=== PATIENT | female | born 1985 | race Hispanic/Latino ===

== ENCOUNTER 2017-07-18 08:03 | Emergency (ER) | payer SELFPAY ==
[2017-07-18 10:16] LABS: #Eosinphils 0.2 thou/uL (0.0-0.7); #Lymphocytes 1.9 thou/uL (1.20-3.40); #Monocytes 0.6 thou/uL (0.11-0.59); #Neutrophils 8.5 thou/uL (1.40-6.50); %Basophils 0.1 % (0.0-1.0); %Eosinophils 1.7 % (0.0-10.0); %Monocytes 5.1 % (0.0-10.0); Hematocrit 43.9 % (36.0-47.0); Mean Platelet Volume 8.3 fL (7.4-10.4); Red Blood Cell (RBC) Count 4.73 mill/uL (4.20-5.40); White Blood Cell (WBC) Count 11.2 thou/uL (4.8-10.8)
[2017-07-18 10:20] LABS: Anion Gap 11 mmol/L (10-20); BUN (Urea Nitrogen) 8 mg/dL (7.0-18.7); Calc. Creatinine Clearance 0 mL/min (70-130); Calcium 9.3 mg/dL (7.8-10.44); Carbon Dioxide 26 mmol/L (22-29); Chloride 105 mmol/L (98-107); Estimated GFR-MDRD Greater than 90
[2017-07-18 10:37] LABS: Bilirubin Negative (Negative); Blood, Urine Large (Negative); Glucose, Urine (Dipstick) Negative (Negative); Ketone, Urine Negative (Negative); Nitrite Negative (Negative); Protein, Urine (Dipstick) Trace mg/dL (Neg-Trace); Urobilinogen 0.2 mg/dL (0.2-1.0)
[2017-07-18 10:41] LABS: Bacteria/HPF 1+ HPF (None Seen); Hyaline Casts/LPF 0-3 HYALINE CAST LPF (0-3 Hyaline); RBC/HPF GREATER THAN 50-TNTC HPF (0-3)
--- NOTE | 2017-07-18 10:58 | ULT ---
TRANSABDOMINAL AND TRANSVAGINAL PELVIC ULTRASOUND: Date: 07/18/17 PROVIDED CLINICAL HISTORY: Pelvic pain and bleeding. FINDINGS: Uterus measures about 9.7 x 7.0 x 5.3 cm. There is heterogeneous echogenic material seen within the endometrial canal and in the region of the uterine cervix. There is no evidence for an intrauterine gestational sac. The right ovary measures about 2.5 x 1.3 x 1.5 cm. The left ovary measures about 1.9 x 1.6 x 1.4 cm. Color Doppler and spectral analysis of the ovarian waveforms reveals normal flow bilaterally. There is no evidence for significant free pelvic fluid. IMPRESSION: 1. No evidence for an intrauterine gestational sac. Correlate with beta HCG values. 2. Heterogeneous material is present within the uterine endometrial canal which may reflect blood p roducts. Other etiologies are not excluded. Follow-up is recommended. POS: LILIANA
== END 2017-07-18 11:48 | disposition home or self-care (01) ==
LOC: ERS 08:03
DX: O03.4 Incomplete spontaneous abortion without complication (principal)
CPT/HCPCS: 36415; 76856; 80048; 81003; 81015; 81025; 84702; 85025; 86900; 86901

== ENCOUNTER 2017-07-20 13:41 | Emergency (ER) | payer OTHER, SELFPAY | END 2017-07-20 16:17 | disposition home or self-care (01) | LOC: ERS 13:41 | DX: O03.9 Complete or unspecified spontaneous abortion without complication (principal) | CPT/HCPCS: 36415; 84702; 99284 ==

== ENCOUNTER 2018-11-22 20:22 | Emergency (ER) | payer MEDICAID, OTHER, SELFPAY | END 2018-11-22 22:50 | disposition home or self-care (01) | LOC: ERS 20:22 | DX: O99.512 Diseases of the respiratory system complicating pregnancy, second trimester (principal); J20.9 Acute bronchitis, unspecified; J02.9 Acute pharyngitis, unspecified | CPT/HCPCS: 87081; 87430; 99283 ==

== ENCOUNTER 2019-03-20 05:57 | Inpatient (IN) | payer OTHER, SELFPAY ==
[2019-03-20 06:36] VITALS: BMI 28.7
[2019-03-20] MEDS ORDERED: Promethazine HCl 25 MG/ML VIAL IM PRN ×2 (07:16→08:36)
[2019-03-20] MEDS ORDERED: Butorphanol Tartrate 1 MG/ML VIAL SLOW IVP PRN (07:16)
[2019-03-20] MEDS ORDERED: Ondansetron PF 4 MG/2 ML Vial IVP PRN ×2 (07:16→08:36)
[2019-03-20] MEDS ORDERED: Acetaminophen 500 MG TAB PO PRN (07:16)
[2019-03-20] MEDS ORDERED: Methylergonovine 0.2 MG/ML VIAL IM PRN (07:16)
[2019-03-20] MEDS ORDERED: NS / Oxytocin 40 units/1000ml 1,000 ML IV PRN (07:16)
[2019-03-20] MEDS ORDERED: Misoprostol 200 MCG TAB PR PRN (07:16)
[2019-03-20] MEDS ORDERED: Carboprost 250 MCG/ML AMP IM PRN (07:16)
[2019-03-20] MEDS ORDERED: Ibuprofen 800 MG TAB PO PRN (07:16)
[2019-03-20] MEDS ORDERED: hydrALAZINE 20 MG/ML VIAL SLOW IVP PRN ×2 (07:16→22:16)
[2019-03-20] MEDS ORDERED: Lidocaine 1% (PF) 30 ML VIAL SC PRN (07:16)
--- NOTE | 2019-03-20 07:23 | PDOC.FPROB ---
FMR OB H&P: HPI - History of Present Illness Chief Complaint: contractions History of Present Illness: 34 yo @ 38.2 by LMP/7.6 wk sono presents to L&D for contractions that began two days ago and have been increasing in frequency and pain. Reports ctx now q7min with very intense pain. Denies LOF, vaginal discharge, bleeding, headache. Desires epidural. Primary Care Physician: Vicente MORRIS FMR OB H&P: Current - Care : 5 Para: [id number] Gestational age: 38.2 Due date: 04/01/2019 Dating Criteria: LMP/17.6 wk sono Course/Complications: a1GDM, fibroid with overlying placenta - OB Labs Blood type: B RH: positive Antibody Screen: negative HIV: negative RPR: negative HepBsAg: negative Rubella: immune Gonorrhea: negative Chlamydia: negative Pap Smear: Normal 11/03/18 1 hour gtt: 211 A1c: 5.0 H&H: 11.3/33.8 Platelets: 216 Additional labs: tsh 0.245 - First Trimester Ultrasound First trimester: anterior fibroid with placenta overlying - Anatomy Survey Anatomy survey: [place] 41%, Male fetus FMR OB H&P: History - OB History OB History: GDM with last 2014, diet controlled - 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 - Family History Family History: Both grandmothers with diabetes FMR OB H&P: Medications - Current Home Medications: Medication Instructions Recorded Confirmed Type Vitamin 1 tablet PO DAILY 04/01/15 03/20/19 History Ferrous Sulfate [Feosol] 325 mg PO BID-WM #0 tab 04/02/15 03/20/19 Rx Allergies/Adverse Reactions: Allergies Allergy/AdvReac Type Severity Reaction Status Date / Time No Known Allergies Allergy Verified 03/20/19 06:36 FMR OB H&P: ROS - Review of Systems Eyes: denies: vision changes Cardiovascular: denies: chest pain, palpitation, edema Respiratory: denies: shortness of breath Gastrointestinal: denies: nausea, vomiting, diarrhea Genitourinary (Female): reports: contractions. denies: dysuria, vaginal discharge, vaginal bleeding Neurologic: denies: headache FMR OB H&P: Vital Signs - Maternal Vital signs: Vital Signs - First Documented Temp Pulse Resp BP Pulse Ox 98.5 F 59 L 16 138/88 98 03/20/19 06:06 03/20/19 06:06 03/20/19 06:06 03/20/19 06:06 03/20/19 06:06 - Heart Tones Baseline: 155 Variability: moderate Acceleration: present Deceleration: absent Category: category 1 [place] contractions every: 5-7 min FMR OB H&P: Physical Exam - Physical Exam General: NAD HEENT: normocephalic and atraumatic Heart: RRR, normal S1/S2, no murmurs/rubs/gallops General: CTAB, no respiratory distress Abdomen: soft, gravid, non-tender Skin: good tugor Lymphatic: no unusual bruising or bleeding - Pelvic Exam Vulva: normal hair distribution SVE: 5/100/-1 FMR OB H&P: A/P - Problem List (1) Intrauterine Current Visit: Yes Status: Acute Code(s): Z34.90 - ENCNTR FOR SUPRVSN OF NORMAL , UNSP, UNSP TRIMESTER (2) Gestational diabetes mellitus in childbirth Current Visit: Yes Status: Acute Code(s): O24.429 - GESTATIONAL DIABETES MELLITUS IN CHILDBIRTH, UNSP CONTROL Discussion: Date/Time: 03/20/19718 sIUP - painful ctx q5-7 min - desires epidural, consult anesthesia - No LOF - FHT Cat 1 - 4/100/-1 @ 0615 - 100/-1 @ 0715 - No GBS record on file. Plan to call [facility] A1GDM - 1hr GTT elevated - diet controlled Fibroid with overlying placenta - seen on initial US PCP: Vicente-PNC Dispo: admit to L&D for labor This H&P was discussed with Dr. Adam who agrees with the above documentation and plan. Addendum - Attending - Attending Attestation Date/Time: 03/20/19 1540 I personally evaluated the patient and discussed the management with Dr. Méndez I agree with the History, Examination, Assessment and Plan documented above with any addition or exceptions noted below - 34 yo @ 38 2/7 weeks presented c/o ctx. Denies LOF, VB (+) FM. Initial SVE 4/C/-1 and progressed to 5 /C/-1 on recheck. Admit patient for active labor. Category 1 FHTs. GBS negative.
[2019-03-20] MEDS ORDERED: Lactated Ringer's 1,000 ML IV SCH (07:30)
[2019-03-20 08:14] LABS: Hemoglobin 12.4 g/dL (12.0-16.0); Mean Corpuscular HGB CONC 32.5 g/dL (32.0-36.0); Mean Corpuscular Hemoglobin 27.9 pg (27.0-31.0); Mean Corpuscular Volume 85.8 fL (78.0-98.0); RBC Distribution Width 15.4 % (11.5-14.5); Red Blood Cell (RBC) Count 4.44 mill/uL (4.20-5.40)
[2019-03-20] MEDS ORDERED: Fentanyl 4 mcg/Bup 0.1% Cadd 100 ML ONE ×2 (08:18→16:17)
[2019-03-20 08:26] LABS: Mean Platelet Volume 11.8 fL (7.4-10.4); Platelet Count 114 thou/uL (130-400)
[2019-03-20] MEDS ORDERED: Acetaminophen 325 MG TAB PO PRN (08:36)
[2019-03-20] MEDS ORDERED: Lactated Ringer's 500 ML IV PRN (08:36)
[2019-03-20] MEDS ORDERED: diphenhydrAMINE 50 MG/ML VIAL IVP PRN (08:36)
[2019-03-20] MEDS ORDERED: ePHEDrine/0.9% NaCl/PF SYRINGE 50 mg/10 ml SLOW IVP PRN (08:36)
[2019-03-20] MEDS ORDERED: Naloxone HCl 0.4 mg/ml Vial IVP PRN ×2 (08:36)
[2019-03-20 08:42] LABS: HBSAg Index 0.27 S/CO (0-0.99); Hep B Surf Ag Non-Reactive S/CO (NonReactive)
[2019-03-20 08:43] LABS: Syphilis Antibody Nonreactive (Nonreactive); Syphilis Antibody Index 0.02 S/CO (<1.00 Non-Reactive)
[2019-03-20] MEDS ORDERED: Fentanyl 4 mcg/Bupivacaine 0.1% Cassette 100 ML EPIDURAL SCH (08:45)
[2019-03-20] MEDS ORDERED: Communication Order-Pharmacy FS SCH (08:45)
--- NOTE | 2019-03-20 11:43 | PDOC.LDPN ---
Labor & Delivery Progress Note - Subjective Subjective: comfortable - Objective Vital signs reviewed and normal: yes General: NAD Dilation: 6 Effacement: 100% Station: -1 FHT: category 1 (145/mod/+accel/variable decel seen) [place] contractions every: 5 min - Assessment (1) Intrauterine Code(s): Z34.90 - ENCNTR FOR SUPRVSN OF NORMAL , UNSP, UNSP TRIMESTER Current Visit: Yes Status: Acute (2) Gestational diabetes mellitus in childbirth Code(s): O24.429 - GESTATIONAL DIABETES MELLITUS IN CHILDBIRTH, UNSP CONTROL Current Visit: Yes Status: Acute Plan: continue plan of care -: sIUP - ctx q5 min - epidural in place - FHT Cat 1 - has had variable decel seen - 100/-1 @ 0615 - 100/-1 @ 0715 - SROM, 100/-1 @ 1130 - GBS negative - CPL called A1GDM - 1hr GTT elevated - diet controlled Fibroid with overlying placenta - seen on initial US Dispo: Continue current management
--- NOTE | 2019-03-20 12:12 | PDOC.LDPN ---
Labor & Delivery Progress Note - Subjective Subjective: comfortable - Objective Vital signs reviewed and normal: yes General: resting Dilation: 6 Effacement: 100% Station: -1 FHT: early decelerations, variable decelerations, variability present [place] contractions every: not picking up well on monitor AROM: clear fluid IUPC placed: yes Resuscitative measures: amniofusion, maternal IV fluids, maternal position change - Assessment (1) Intrauterine Code(s): Z34.90 - ENCNTR FOR SUPRVSN OF NORMAL , UNSP, UNSP TRIMESTER Current Visit: Yes Status: Acute (2) Gestational diabetes mellitus in childbirth Code(s): O24.429 - GESTATIONAL DIABETES MELLITUS IN CHILDBIRTH, UNSP CONTROL Current Visit: Yes Status: Acute Plan: continue plan of care, resuscitative measures -: sIUP - ctx q5 min - epidural in place - FHT variable and early decel seen. Good variability. - 100/-1 @ 0615 - 100/-1 @ 0715 - SROM, 100/-1 @ 1130, completed with AROM @ [address] - GBS negative - CPL called A1GDM - 1hr GTT elevated - diet controlled Fibroid with overlying placenta - seen on initial US Dispo: IUPC placed, plan for amnioinfusion and continue to monitor
--- NOTE | 2019-03-20 14:55 | PDOC.LDPN ---
Labor & Delivery Progress Note - Objective Abnormal vital signs: Bp 120-140/80-90 General: NAD, resting SVE: 7/C/0 FHT: category 2 [place] contractions every: q3 min -: A/P: 1) IUP @38 2/7 weeks in active labor Cat 2 FHTs- deep variables earlier now improved with amnio-infusion Continue expectant management 2) Intermittent elevated BP Will check CMP, urine protein/Cr ratio
[2019-03-20 15:18] LABS: ALT (SGPT) 23 U/L (8-55); AST (SGOT) 18 U/L (5-34); Albumin 3.3 g/dL (3.5-5.0); Alkaline Phosphatase 161 U/L (40-150); Anion Gap 15 mmol/L (10-20); BUN (Urea Nitrogen) 10 mg/dL (7.0-18.7); Bilirubin, Total 0.3 mg/dL (0.2-1.2); Calc. Creatinine Clearance 139 mL/min (70-130); Calcium 8.8 mg/dL (7.8-10.44); Carbon Dioxide 20 mmol/L (22-29); Chloride 105 mmol/L (98-107); Estimated GFR-MDRD Greater than 90; Globulin 2.8 g/dL (2.4-3.5); Glucose 79 mg/dL (70-105); Protein, Total 6.1 g/dL (6.0-8.3); Sodium 136 mmol/L (136-145)
[2019-03-20 15:36] LABS: Creatinine, Urine 41.14 mg/dL (47-110); Protein, Urine Random Quant Less than 10 mg/dL (1-14)
--- NOTE | 2019-03-20 17:06 | PDOC.OPDEL ---
OB Operative/Delivery Note Delivery Dr/Surgeon: Darcy Adam MD Pre-Delivery Diagnosis: active labor Procedure/Post Delivery Dx: spontaneous vaginal delivery Weeks gestation: 38 Anesthesia: epidural - Additional Findings/Plan Placenta delivered: spontaneous Repaired Obstetrical Laceration: none Estimated blood loss: QBL=82 mL Compilations/Other Findings: 34 yo F @ 38.2 weeks presented in active labor and progressed to complete. With active pushing, she delivered a viable male infant in OP position via @16:45. No nuchal cord. Shoulders and body delivered easily. Cord clamped and cut and cord blood collected. Placenta delivered spontaneously and intact. 3V cord. No epis or lacerations. QBL=82 mL Infant and mother in stable condition. Post delivery plan: routine recovery
[2019-03-20] MEDS ORDERED: NS / Oxytocin 40 units/1000ml 1,000 ML IV SCH (22:05)
[2019-03-20] MEDS ORDERED: Preparation H Ointment 28 GM TUBE PR PRN (22:05)
[2019-03-20] MEDS ORDERED: Milk Of Magnesia 30 ML UDCUP PO PRN (22:05)
[2019-03-20] MEDS ORDERED: Benzocaine-Menthol 82.5 ML CAN TOP PRN (22:05)
[2019-03-20] MEDS ORDERED: Lanolin Ointment 7 GM TUBE TOP PRN (22:05)
[2019-03-20] MEDS ORDERED: Bisacodyl 10 MG SUPP PR PRN (22:05)
[2019-03-20] MEDS ORDERED: diphenhydrAMINE 25 MG CAP PO PRN (22:05)
[2019-03-20] MEDS ORDERED: Docusate Calcium (SURFAK) 240 MG CAP PO SCH (22:15)
[2019-03-20] MEDS: Ibuprofen 800 MG TAB PO SCH (22:38)
[2019-03-21] MEDS: Ibuprofen 800 MG TAB PO SCH ×2 (06:14→13:39)
--- NOTE | 2019-03-21 07:19 | PDOC.PP ---
Post Progress Note Post Day #: 1 Subjective: pain controlled, breast feeding well. PO intake tolerated: yes Flatus: yes Ambulation: yes Vital Signs (12 hours) Temp Pulse Resp BP Pulse Ox 03/21/19 03:29 98.2 F 62 18 111/69 03/20/19 23:28 98.6 F 64 20 106/66 03/20/19 22:42 59 L 03/20/19 22:00 55 L 20 180/89 H 03/20/19 21:21 52 L 20 163/89 H 03/20/19 20:15 98.8 F 59 L 20 135/72 100 Weight Weight 66.678 kg - Physical Examination General: NAD Cardiovascular: no m/r/g, RRR Respiratory: clear to auscultation bilaterally, non-labored breathing Abdominal: + bowel sounds, lochia, no distention, appropriately TTP Fundus firm & at: below umbilicus Extremities: negative homans (B) Neurological: no gross focal deficits Psychiatric: A&Ox3, normal affect Result Diagrams: 03/20/19 07:34 03/20/19 07:34 Additional Labs: Post Labs Blood Type B POSITIVE 03/20/19 07:34 Hep Bs Antigen Non-Reactive S/CO (NonReactive) 03/20/19 07:34 (1) Gestational diabetes mellitus in childbirth Code(s): O24.429 - GESTATIONAL DIABETES MELLITUS IN CHILDBIRTH, UNSP CONTROL Status: Acute (2) Intrauterine Code(s): Z34.90 - ENCNTR FOR SUPRVSN OF NORMAL , UNSP, UNSP TRIMESTER Status: Acute (3) Vaginal delivery Code(s): O80 - ENCOUNTER FOR FULL-TERM UNCOMPLICATED DELIVERY Status: Acute - Assessment/Plan 1. PP care: Progressing well. Could d/c this afternoon pending baby bilirubin at 24 HOL. 2. GDM A1: 2hr GTT at 6 wk PP. 3. Elevated BP: received 1 dose hydralazine. WNL since. Pre-E evaluation negative. Monitor BP today. Dispo: d/c pending baby bili but likely late afternoon. Addendum - Attending - Attending Attestation Date/Time: 03/21/19 0891 I personally evaluated the patient and discussed the management with Dr. Mercado I agree with the History, Examination, Assessment and Plan documented above with any addition or exceptions noted below- Patient denies any complaints. Afebrile VSS. A/P: PPD#1 S/P doing well. Plan to d/c home this afternoon if infant's bilirubin is in acceptable range.
[2019-03-21] MEDS ORDERED: Docusate Calcium (SURFAK) 240 MG CAP PO SCH (09:00)
[2019-03-21] MEDS ORDERED: Prenatal Vitamin 1 TAB PO SCH (09:00)
[2019-03-21] MEDS ORDERED: Adacel (T-DAP) 0.5 ML SYRINGE IM ONE (09:00)
[2019-03-21 16:46] VITALS: BP 95/54; TEMP 97.1
== END 2019-03-21 19:39 | disposition home or self-care (01) | DRG 807 ==
LOC: L&D/OP 05:57 → L&D 09:10 → 3SW 22:10
PROVIDERS: ADMIT Obstetrics & Gynecology; ATTEND Obstetrics & Gynecology
PROC: 10E0XZZ Delivery of Products of Conception, External Approach (ICD-10-PCS; principal; 2019-03-20)
PROC: 10H07YZ Insertion of Other Device into Products of Conception, Via Natural or Artificial Opening (ICD-10-PCS; 2019-03-20)
PROC: 4A1H7CZ Monitoring of Products of Conception, Cardiac Rate, Via Natural or Artificial Opening (ICD-10-PCS; 2019-03-20)
DX: O24.420 Gestational diabetes mellitus in childbirth, diet controlled (principal); Z37.0 Single live birth; O43.893 Other placental disorders, third trimester; Z3A.38 38 weeks gestation of pregnancy
CPT/HCPCS: 36415; 51702; 80053; 82570; 84156; 85027; 86780; 86850; 86900; 86901; 87340; 99285; J0360